=== PATIENT | male | born 1945 | race Caucasian/White ===

== ENCOUNTER 2017-04-29 09:33 | Day surgery (SDC) | payer OTHER ==
[2017-05-14] MEDS ORDERED: Glipizide ER5 MG PO (14:28)
[2017-05-14] MEDS ORDERED: GABA300 PO (14:29)
[2017-05-14] MEDS ORDERED: AZAT50 PO (14:29)
[2017-05-14] MEDS ORDERED: NITR.4SL SL (14:29)
[2017-05-14] MEDS ORDERED: Pentasa500 MG PO (14:30)
[2017-05-14] MEDS ORDERED: HYDCHL12.5 PO (14:30)
[2017-05-14] MEDS ORDERED: CETI5 PO (14:30)
[2017-05-14] MEDS ORDERED: ASPI81CH PO (14:31)
[2017-05-14] MEDS ORDERED: Nifediac Cc60 MG PO (14:31)
[2017-05-14] MEDS ORDERED: METO25ER PO (14:31)
== END 2017-04-29 22:58 | disposition home or self-care (01) ==
LOC: MHTC 09:33 → ORSCMMR 09:33 → CT 10:00 → ORD 22:58 → ORSCMMR 22:58
DX: R07.9 Chest pain, unspecified (principal); K44.9 Diaphragmatic hernia without obstruction or gangrene; E11.9 Type 2 diabetes mellitus without complications; K50.90 Crohn's disease, unspecified, without complications; I10 Essential (primary) hypertension; I25.10 Atherosclerotic heart disease of native coronary artery without angina pectoris; K21.9 Gastro-esophageal reflux disease without esophagitis; G45.8 Other transient cerebral ischemic attacks and related syndromes; J44.9 Chronic obstructive pulmonary disease, unspecified; Z85.46 Personal history of malignant neoplasm of prostate; Z79.899 Other long term (current) drug therapy
CPT/HCPCS: 75574; Q9967

== ENCOUNTER 2017-05-15 03:12 | Day surgery (SDC) | payer OTHER ==
[~2017-05-15] VITALS: Ht 172.7 cm; Wt 69.0 kg
[~2017-05-15 03:12] MED LIST: ASPI81CH PO; AZAT50 PO; CETI5 PO; GABA300 PO; Glipizide ER5 MG PO; HYDCHL12.5 PO; METO25ER PO; NITR.4SL SL; Nifediac Cc60 MG PO; Pentasa500 MG PO
[2017-05-15 07:17] LABS: BASOPHILS ABSOLUTE AUTO 0.04 K/mm3 (0.00-0.23); BASOPHILS PERCENT AUTO 1 % (0-2); EOSINOPHILS ABSOLUTE AUTO 0.15 K/mm3 (0.00-0.68); EOSINOPHILS PERCENT AUTO 2 % (0-6); Hematocrit 28.7 % (37.0-53.0); Hemoglobin 9.5 g/dL (13.5-17.5); IMMATURE GRAN ABSOLUTE AUTO 0.03 K/mm3 (0.00-0.10); IMMATURE GRAN PERCENT AUTO 0 % (0-1); LYMPHOCYTES ABSOLUTE AUTO 1.72 K/mm3 (0.84-5.20); LYMPHOCYTES PERCENT AUTO 25 % (21-46); MONOCYTES ABSOLUTE AUTO 0.51 K/mm3 (0.16-1.47); MONOCYTES PERCENT AUTO 8 % (4-13); Mean Corpuscular HGB 35.6 pg (26.0-34.0); Mean Corpuscular HGB Conc 33.1 g/dL (31.5-36.5); Mean Corpuscular Volume 108 fL (80-100); Mean Platelet Volume 8.8 fL (9.1-12.4); NEUTROPHILS ABSOLUTE AUTO 4.36 K/mm3 (1.96-9.15); NEUTROPHILS PERCENT AUTO 64 % (41-73); Platelet Count 460 K/mm3 (150-400); RDW Coefficient Variation 16.3 % (11.7-14.2); RDW Standard Deviation 63.7 fL (35.1-46.3); Red Blood Cell Count 2.67 M/mm3 (4.30-5.90); White Blood Cell Count 6.81 K/mm3 (4.00-11.30)
[2017-05-15] MEDS ORDERED: BUDE10.22 INH (07:18)
[2017-05-15] MEDS ORDERED: PANT40 PO (07:21)
[2017-05-15 07:34] LABS: International Normalized Ratio 1.05; Prothrombin Time Results 10.9 Sec (9.7-11.5)
[2017-05-15 08:01] LABS: Anion Gap 4 mmol/L (6-16); Blood Urea Nitrogen 20 mg/dL (8-24); Bun/Creatinine Ratio 22.5 (12.0-20.0); CO2, Blood 29 mmol/L (21-32); Calcium, Blood 8.3 mg/dL (8.5-10.1); Chloride, Blood 102 mmol/L (98-108); Creatinine, Blood 0.89 mg/dL (0.60-1.20); Glomerular Filtration Rate >60 (60-); Glucose, Blood 134 mg/dL (70-99); Potassium, Blood 3.4 mmol/L (3.5-5.5); Sodium, Blood 135 mmol/L (136-145)
[2017-05-15] MEDS ORDERED: SIMV40 PO (09:07)
[2017-05-15] MEDS ORDERED: NITR.4SL SL (09:08)
== END 2017-05-15 12:45 | disposition home or self-care (01) ==
LOC: MHTC 03:12
PROVIDERS: Internal Medicine Interventional Cardiology
PROC: 4A023N7 Measurement of Cardiac Sampling and Pressure, Left Heart, Percutaneous Approach (ICD-10-PCS; principal; 2017-05-15)
PROC: B210YZZ Fluoroscopy of Single Coronary Artery using Other Contrast (ICD-10-PCS; principal; 2017-05-15)
DX: I25.118 Atherosclerotic heart disease of native coronary artery with other forms of angina pectoris (principal); I25.82 Chronic total occlusion of coronary artery; E11.9 Type 2 diabetes mellitus without complications; I10 Essential (primary) hypertension; J44.9 Chronic obstructive pulmonary disease, unspecified; G47.30 Sleep apnea, unspecified; K21.9 Gastro-esophageal reflux disease without esophagitis; Z87.891 Personal history of nicotine dependence
CPT/HCPCS: 80048; 85025; 85610; 93454; 99152; 99153; C1769; C1894; J1644; J2250; J3010; J7030; Q9967

== ENCOUNTER 2018-01-22 20:11 | Inpatient (IN) | payer MEDICARE ==
[~2018-01-22] VITALS: Ht 172.7 cm; Wt 56.5 kg
[~2018-01-22 20:11] MED LIST changes: +BUDE10.22 INH; +PANT40 PO; +SIMV40 PO
[2018-01-22] MEDS ORDERED: ACET325 PO (21:01)
[2018-01-22] MEDS ORDERED: ATOR10 PO (21:02)
[2018-01-22] MEDS ORDERED: ACYC800 PO (21:02)
[2018-01-22] MEDS ORDERED: CELE200 PO (21:03)
[2018-01-22] MEDS ORDERED: PERIDEX15 ML MM (21:04)
[2018-01-22] MEDS ORDERED: CHLO25B PO (21:05)
[2018-01-22] MEDS ORDERED: DEXA4 PO (21:05)
[2018-01-22] MEDS ORDERED: FENTANYL1 EAC1 TD (21:07)
[2018-01-22] MEDS ORDERED: GABA300 PO (21:08)
[2018-01-22] MEDS ORDERED: LIDO700A20 TOP (21:09)
[2018-01-22] MEDS ORDERED: Hair, Skin & N1 EACH PO (21:10)
[2018-01-22] MEDS ORDERED: PYRI100 PO (21:11)
[2018-01-22] MEDS ORDERED: QUETIAPINE FUMA50 M1 PO (21:12)
[2018-01-22] MEDS ORDERED: Ranitidine HCl300 M1 PO (21:12)
[2018-01-22 21:29] LABS: Anion Gap 9 mmol/L (6-16); Blood Urea Nitrogen 61 mg/dL (8-24); Bun/Creatinine Ratio 59.2 (12.0-20.0); CO2, Blood 27 mmol/L (21-32); Calcium, Blood 7.6 mg/dL (8.5-10.1); Chloride, Blood 97 mmol/L (98-108); Creatinine, Blood 1.03 mg/dL (0.60-1.20); Glomerular Filtration Rate >60 (60-); Glucose, Blood 306 mg/dL (70-99); Potassium, Blood 3.9 mmol/L (3.5-5.5); Sodium, Blood 133 mmol/L (136-145)
[2018-01-22 21:34] LABS: Troponin I 0.664 ng/mL (0.000-0.040)
[2018-01-23 04:59] LABS: Hematocrit 32.3 % (37.0-53.0); Hemoglobin 10.8 g/dL (13.5-17.5); Mean Corpuscular HGB 35.9 pg (26.0-34.0); Mean Corpuscular HGB Conc 33.4 g/dL (31.5-36.5); Mean Corpuscular Volume 107 fL (80-100); Mean Platelet Volume 12.2 fL (9.1-12.4); NRBC ABSOLUTE 0.07 K/mm3 (0.00-0.02); NRBC Auto 0.5 /100 WBC (0.0-0.2); Platelet Count 246 K/mm3 (150-400); RDW Coefficient Variation 16.3 % (11.7-14.2); RDW Standard Deviation 64.5 fL (35.1-46.3); Red Blood Cell Count 3.01 M/mm3 (4.30-5.90); White Blood Cell Count 14.56 K/mm3 (4.00-11.30)
[2018-01-23 05:22] LABS: Anion Gap 10 mmol/L (6-16); Blood Urea Nitrogen 49 mg/dL (8-24); Bun/Creatinine Ratio 57.4 (12.0-20.0); CO2, Blood 24 mmol/L (21-32); Chloride, Blood 100 mmol/L (98-108); Creatinine, Blood 0.85 mg/dL (0.60-1.20); Glomerular Filtration Rate >60 (60-); Glucose, Blood 184 mg/dL (70-99); Potassium, Blood 3.5 mmol/L (3.5-5.5); Sodium, Blood 134 mmol/L (136-145)
[2018-01-23 05:38] LABS: Troponin I 0.589 ng/mL (0.000-0.040)
[2018-01-23 05:58] LABS: BAND PERCENT MAN 5 % (0-8); BASOPHILS PERCENT MAN 0 % (0-2); EOSINOPHILS PERCENT MAN 0 % (0-6); LYMPHOCYTES ABSOLUTE MAN 1.31 K/mm3 (0.84-5.20); LYMPHOCYTES PERCENT MAN 9 % (21-46); METAMYELOCYTE ABSOLUTE MAN 0.29 K/mm3 (0.00-0.00); METAMYELOCYTE PERCENT MAN 2 % (0-0); MONOCYTES ABSOLUTE MAN 1.16 K/mm3 (0.16-1.47); MONOCYTES PERCENT MAN 8 % (4-13); MYELOCYTE ABSOLUTE MAN 0.14 K/mm3 (0.00-0.00); MYELOCYTE PERCENT MAN 1 % (0-0); NEUTROPHILS ABSOLUTE MAN 11.64 K/mm3 (1.96-9.15); SEG NEUTROPHILS PERCENT MAN 75 % (41-73); TOTAL CELLS COUNTED 100
[2018-01-24] MEDS ORDERED: LEVOFLOXACIN500 MG PO (11:22)
== END 2018-01-24 13:04 | disposition home or self-care (01) | DRG 871 ==
LOC: ER 20:11 → MEDS 21:33
PROVIDERS: Emergency Medicine; Family Medicine
DX: A41.9 Sepsis, unspecified organism (principal); J18.9 Pneumonia, unspecified organism; C90.00 Multiple myeloma not having achieved remission; K50.90 Crohn's disease, unspecified, without complications; I24.8 Other forms of acute ischemic heart disease; N17.9 Acute kidney failure, unspecified; E87.1 Hypo-osmolality and hyponatremia; I95.9 Hypotension, unspecified; K21.9 Gastro-esophageal reflux disease without esophagitis; E11.40 Type 2 diabetes mellitus with diabetic neuropathy, unspecified; E86.0 Dehydration; I10 Essential (primary) hypertension; J44.9 Chronic obstructive pulmonary disease, unspecified; K22.70 Barrett's esophagus without dysplasia; I25.10 Atherosclerotic heart disease of native coronary artery without angina pectoris; Z92.21 Personal history of antineoplastic chemotherapy; Z85.46 Personal history of malignant neoplasm of prostate; Z79.84 Long term (current) use of oral hypoglycemic drugs; Z79.899 Other long term (current) drug therapy; Z87.891 Personal history of nicotine dependence; I25.2 Old myocardial infarction
CPT/HCPCS: 36415; 71260; 80048; 82947; 83605; 84145; 84484; 85025; 93005; 93010; 93306; 94640; 94760; 99285-25; J1650; J1815; J2543; J3370; J7030; Q9967